=== PATIENT | male | born 1945 | race Caucasian/White ===

== ENCOUNTER 2019-05-03 11:08 | Day surgery (SDC) | payer MEDICARE ==
[~2019-05-03] VITALS: Ht 175.3 cm; Wt 89.4 kg
[2019-05-03] MEDS ORDERED: LACTATED RINGERS 1,000 ML IV SCH (12:04)
[2019-05-03] MEDS ORDERED: ATEN100T PO (12:06)
[2019-05-03] MEDS ORDERED: AMLO-150 PO (12:06)
[2019-05-03] MEDS ORDERED: DOCU100C33 PO (12:06)
[2019-05-03] MEDS ORDERED: DOXA4TAB2 PO (12:06)
[2019-05-03 12:24] VITALS: BP 158/88
[2019-05-03] MEDS ORDERED: CHLORHEXIDINE 15 ML UDC ONE (13:01)
[2019-05-03] MEDS ORDERED: GLYCOPYRROLATE 0.2MG/1ML, 5ML ONE (13:44)
[2019-05-03] MEDS ORDERED: PROPOFOL 10 MG/ML, 20ML ONE ×4 (14:04)
[2019-05-03] MEDS ORDERED: CEFOTETAN PMX 2GM/50ML 50 ML ONE (14:11)
[2019-05-03] MEDS ORDERED: DIAZEPAM 5 MG/ML, 2ML IVPush PRN (14:30)
[2019-05-03] MEDS ORDERED: FENTANYL PF 100 MCG/2ML IV PRN (14:30)
[2019-05-03] MEDS ORDERED: ONDANSETRON 2MG/ML, 2ML IV PRN (14:30)
[2019-05-03] MEDS ORDERED: MIDAZOLAM 1 MG/ML, 2ML IV PRN (14:30)
[2019-05-03] MEDS ORDERED: MEPERIDINE/PF 25MG/ML,1ML IVPush PRN (14:30)
[2019-05-03] MEDS ORDERED: OXYcodone 5 MG/5 ML ORAL.SOL UDC PO PRN (14:30)
[2019-05-03] MEDS ORDERED: HALOPERIDOL 5 MG/ML IV PRN (14:30)
[2019-05-03] MEDS ORDERED: LABETALOL 5MG/ML, 20ML IV PRN (14:30)
[2019-05-03] MEDS ORDERED: ONDANSETRON ODT 8 MG PO PRN (14:30)
[2019-05-03] MEDS ORDERED: PROMETHAZINE 25 MG/ML, 1ML IV PRN (14:30)
[2019-05-03] MEDS ORDERED: hydrALAzine 20 MG/ML, 1ML IV PRN (14:30)
[2019-05-03] MEDS ORDERED: PROMETHAZINE 12.5 MG SUPP PR PRN (14:30)
[2019-05-03] MEDS ORDERED: HYDROmorphone 2 MG/ML, 1ML IVPush PRN (14:30)
[2019-05-03] MEDS ORDERED: EPHEDRINE 50 MG/ML, 1ML IVPush PRN (14:30)
[2019-05-03] MEDS ORDERED: ALBUTEROL SULFATE 2.5 MG/3 ML NPPB PRN (14:30)
== END 2019-05-03 15:45 | disposition home or self-care (01) ==
LOC: OUT 11:08
PROVIDERS: ATTEND Internal Medicine Gastroenterology
DX: K31.9 Disease of stomach and duodenum, unspecified (principal); C49.A2 Gastrointestinal stromal tumor of stomach; K44.9 Diaphragmatic hernia without obstruction or gangrene; I10 Essential (primary) hypertension; E78.5 Hyperlipidemia, unspecified; J45.909 Unspecified asthma, uncomplicated; Z72.89 Other problems related to lifestyle; Z79.899 Other long term (current) drug therapy
CPT/HCPCS: 43239; 43242; 88172; 88173; 88305; 88341; 88342; J2704; J3490; J7120

== ENCOUNTER 2019-06-20 06:54 | Observation (INO) | payer MEDICARE ==
[~2019-06-20] VITALS: Ht 175.3 cm; Wt 91.1 kg
[~2019-06-20 06:54] MED LIST: AMLO-150 PO; ATEN100T PO; DOCU100C33 PO; DOXA4TAB2 PO
[2019-06-20] MEDS ORDERED: FENTANYL PF 100 MCG/2ML ONE ×2 (07:27→10:47)
[2019-06-20] MEDS ORDERED: MIDAZOLAM 1 MG/ML, 2ML ONE (07:27)
[2019-06-20] MEDS ORDERED: ATOR40TA78 PO (07:41)
[2019-06-20] MEDS ORDERED: ASPI-496 PO (07:41)
[2019-06-20] MEDS ORDERED: LACTATED RINGERS 1,000 ML IV SCH (07:41)
[2019-06-20 07:42] VITALS: BP 154/80
[2019-06-20] MEDS ORDERED: HYDROmorphone 2 MG/ML, 1ML IVPush PRN (08:00)
[2019-06-20] MEDS ORDERED: OXYcodone 5 MG/5 ML ORAL.SOL UDC PO PRN (08:00)
[2019-06-20] MEDS ORDERED: LORazepam 2 MG/ML, 1ML IVPush PRN (08:00)
[2019-06-20] MEDS ORDERED: ONDANSETRON 2MG/ML, 2ML IV PRN (08:00)
[2019-06-20] MEDS ORDERED: LABETALOL 5MG/ML, 20ML IV PRN (08:00)
[2019-06-20] MEDS ORDERED: MEPERIDINE/PF 25MG/ML,1ML IVPush PRN (08:00)
[2019-06-20] MEDS ORDERED: hydrALAzine 20 MG/ML, 1ML IV PRN ×2 (08:00→11:00)
[2019-06-20 08:19] LABS: ALBUMIN 3.7 g/dL (3.4-5.0); ANION GAP 8 mmol/L (5-15); CALCIUM 8.8 mg/dL (8.5-10.1); CHLORIDE 109 mmol/L (98-107)
[2019-06-20 08:24] LABS: ALANINE AMINOTRANSFERASE 32 U/L (12-78); ALKALINE PHOSPHATASE 63 U/L (45-117); BILIRUBIN,TOTAL 0.7 mg/dL (0.2-1.0); CREATININE 0.85 mg/dL (0.7-1.3); TOTAL PROTEIN 7.2 g/dL (6.4-8.2)
[2019-06-20] MEDS ORDERED: BUPIVACAINE/PF 0.5% ONE (09:01)
[2019-06-20] MEDS ORDERED: DEXAMETHASONE 4 MG/ML, 1ML ONE (09:20)
[2019-06-20] MEDS ORDERED: ROCURONIUM 10MG/ML,5ML ONE (09:20)
[2019-06-20] MEDS ORDERED: NEOSTIGMINE 1 MG/ML, 10ML ONE (09:20)
[2019-06-20] MEDS ORDERED: ONDANSETRON 2MG/ML, 2ML ONE (09:20)
[2019-06-20] MEDS ORDERED: EPHEDRINE 50 MG/ML, 1ML ONE (09:20)
[2019-06-20] MEDS ORDERED: CEFAZOLIN 1,000 MG ONE (09:20)
[2019-06-20] MEDS ORDERED: PROPOFOL 10 MG/ML, 20ML ONE (09:20)
[2019-06-20] MEDS ORDERED: GLYCOPYRROLATE 0.2MG/1ML, 5ML ONE (09:20)
[2019-06-20] MEDS ORDERED: LIDOCAINE 2% 100MG/5ML SYRINGE ONE (09:20)
[2019-06-20] MEDS: LACTATED RINGERS 1,000 ML IV SCH ×2 (10:48→17:58)
[2019-06-20] MEDS: FENTANYL PF 100 MCG/2ML IV PRN ×4 (10:54→11:44)
[2019-06-20] MEDS ORDERED: morphine SULFATE 10 MG/ML, 1ML IV PRN (11:00)
[2019-06-20] MEDS ORDERED: ENALAPRILAT 1.25 MG/ML, 2ML IV PRN (11:00)
[2019-06-20] MEDS ORDERED: KETOROLAC 30 MG/1 ML IV PRN (11:00)
[2019-06-20] MEDS: FAMOTIDINE 20 MG/2 ML IV SCH ×2 (11:00→23:32)
[2019-06-20] MEDS ORDERED: ONDANSETRON 2MG/ML, 2ML IVPush PRN (11:00)
[2019-06-20] MEDS ORDERED: OXYcodone 5 MG/5 ML ORAL.SOL UDC ONE (11:15)
[2019-06-20] MEDS ORDERED: MEPERIDINE/PF 25MG/ML,1ML ONE (11:15)
[2019-06-20] MEDS ORDERED: ACETAMINOPHEN 650 MG/20.3 ML UDC ONE (11:15)
[2019-06-20] MEDS ORDERED: KETOROLAC 30 MG/1 ML ONE (11:15)
[2019-06-20] MEDS ORDERED: ACETAMINOPHEN 650 MG/20.3 ML UDC PO PRN (11:30)
[2019-06-20 13:24] VITALS: BP 146/78
[2019-06-20] MEDS: HYDROcodone/APAP 7.5-325MG/15ML UDC PO PRN ×2 (16:37→23:32)
[2019-06-20 21:55] VITALS: BP 170/88
[2019-06-20] MEDS ORDERED: ATENOLOL 100 MG TABLET ONE (22:07)
[2019-06-20] MEDS ORDERED: ATENOLOL 100 MG TABLET PO ONE (22:30)
[2019-06-20 23:55] VITALS: BP 146/76
[2019-06-21 00:12] VITALS: BP 128/66
[2019-06-21] MEDS: LACTATED RINGERS 1,000 ML IV SCH (02:48)
[2019-06-21 06:51] VITALS: BP 140/78
[2019-06-21] MEDS ORDERED: ENOXAPARIN 40 MG/0.4 ML SQ SCH (09:00)
[2019-06-21] MEDS ORDERED: AMLODIPINE 5 MG TABLET PO SCH (09:00)
[2019-06-21] MEDS ORDERED: HYDR15SO3 PO (09:22)
[2019-06-21] MEDS ORDERED: ATENOLOL 100 MG TABLET PO SCH (21:00)
== END 2019-06-21 10:30 | disposition home or self-care (01) ==
LOC: ORIP 06:54 → INTOOBSV 06:54 → 4NE 12:27 → DCLOUNGE 06-21 10:25
PROVIDERS: ADMIT Thoracic Surgery (Cardiothoracic Vascular Surgery); ATTEND Thoracic Surgery (Cardiothoracic Vascular Surgery)
DX: C49.A0 Gastrointestinal stromal tumor, unspecified site (principal); K44.9 Diaphragmatic hernia without obstruction or gangrene; I10 Essential (primary) hypertension; E78.5 Hyperlipidemia, unspecified; N40.0 Benign prostatic hyperplasia without lower urinary tract symptoms; Z79.899 Other long term (current) drug therapy; Z79.82 Long term (current) use of aspirin; Z87.891 Personal history of nicotine dependence
CPT/HCPCS: 36415; 43280; 43659; 80053; 86850; 86900; 88307; 93005; 96372; 96374; G0378; J0690; J1100; J1650; J1885; J2175; J2250; J2405; J2704; J2710; J3010; J3490; J7120; S0020; S2900